=== PATIENT | female | born 1940 | race Caucasian/White ===

== ENCOUNTER → 2018-06-04 | Outpatient (CLI) | payer MEDICARE, BC ==
--- NOTE | 2018-06-05 10:51 | XR ---
EXAMINATION TYPE: XR knee complete bilateral DATE OF EXAM: 06/04/2018 CLINICAL HISTORY: Bilateral knee pain. TECHNIQUE: Three views of the bilateral knees were obtained. COMPARISON: None. FINDINGS: There is no acute fracture/dislocation evident in either knee. 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 With regards of the right knee there is also medial subluxation without disloca tion of the knee joint. Tricompartmental osteophytes are seen bilaterally. No acute fracture or dislo cation of either knee. Mild atherosclerosis is seen on the left and moderate on the right. Generalize d osseous demineralization is noted. IMPRESSION: 1. Extensive tricompartmental arthrosis with [id number] articulation of the weightbearing surface o f the medial compartments and medial subluxation of the right knee without dislocation. 2. No acute fracture or dislocation in either knee.
== END | disposition home or self-care (01) ==
LOC: RADXRYALE 16:24
PROVIDERS: ATTEND Internal Medicine
DX: S83.101A Unspecified subluxation of right knee, initial encounter (principal); M17.11 Unilateral primary osteoarthritis, right knee; M81.0 Age-related osteoporosis without current pathological fracture